=== PATIENT | male | born 1980 | race Hispanic/Latino ===

== ENCOUNTER 2017-05-15 18:58 | Emergency (ER) | payer SELFPAY ==
[~2017-05-15] VITALS: Ht 182.9 cm; Wt 97.9 kg
[2017-05-15 21:42] LABS: HEMATOCRIT 49.3 % (38.0-50.0); HEMOGLOBIN 17.2 G/DL (12.5-16.6); MCHC 34.9 G/DL (30.0-36.0); MCV 94.6 FL (86-99); PLATELET COUNT 202 K/uL (156-360); RBC DIS.WIDTH-CV 13.9 % (11.8-14.6); RBC DIS.WIDTH-SD 48.7 % (39-53); RED BLOOD COUNT 5.21 M/uL (4.00-5.50); WHITE BLOOD COUNT 7.1 K/uL (4.1-10.2)
[2017-05-15] MEDS ORDERED: MOTRIN600 MG PO (21:50)
[2017-05-15] MEDS ORDERED: DOXYCYCLINE HY100 MG PO (21:51)
[2017-05-15 21:56] VITALS: BP 139/84
== END 2017-05-15 21:57 | disposition home or self-care (01) ==
LOC: EME 18:58
PROVIDERS: Physician Assistant
DX: B34.9 Viral infection, unspecified (principal); J40 Bronchitis, not specified as acute or chronic; F17.200 Nicotine dependence, unspecified, uncomplicated
CPT/HCPCS: 71046; 85027; 87651 90; 99281; 99284